=== PATIENT | male | born 1945 | race Caucasian/White ===

== ENCOUNTER 2018-04-25 19:05 | Emergency (ER) | payer OTHER ==
--- NOTE | 2018-04-25 19:21 | EDPHY ---
H & P Stated Complaint: "Feeling shaky more than usual", diff. breathing, hx depression Time Seen by Provider: 04/25/18 19:21 HPI/ROS: CHIEF COMPLAINT: Feeling more shaky HISTORY OF PRESENT ILLNESS: The patient has a history of chronic depression and a chronic resting tremor. He has been under the care of a psychiatrist for years in on a number of medications which have not resulted in improvement of his chronic tremor and feeling of restlessness. He presents to the ED tonight with his ex- feeling that his symptoms are worsening. The patient denies any fever, vomiting, diarrhea, chest pain or difficulty breathing. He denies any recent changes to his medications. He is followed [facility]. The patient denies any dysuria. He does have a history of BPH which is typically well managed with Flomax. The patient denies any suicidal or homicidal ideation REVIEW OF SYSTEMS: A comprehensive 10 point review of systems is otherwise negative aside from elements mentioned in the history of present illness. Source: Patient - Personal History Current Tetanus Diphtheria and Acellular Pertussis (TDAP): Unsure - Medical/Surgical History Hx Asthma: No Hx Chronic Respiratory Disease: No Hx Diabetes: No Hx Cardiac Disease: No Hx Renal Disease: No Hx Cirrhosis: No Hx Alcoholism: No Hx HIV/AIDS: No Hx Splenectomy or Spleen Trauma: No Other PMH: depression HTN, BPH - Social History Smoking Status: Never smoked - Physical Exam Exam: General Appearance: Alert, no acute distress Eyes: Pupils equal and round no pallor or injection ENT, Mouth: Mucous membranes moist Respiratory: There are no retractions, lungs are clear to auscultation Cardiovascular: Regular rate and rhythm Gastrointestinal: Abdomen is soft and nontender, no masses, bowel sounds normal Neurological: A&O, normal motor function, normal sensory exam, normal cranial nerves, fine resting tremor Skin: Warm and dry, no rashes Musculoskeletal: Neck is supple nontender Extremities: symmetrical, full range of motion Psychiatric: Patient is oriented X 3, there is no agitation Constitutional: Initial Vital Signs Temperature (C) 36.9 C 04/25/18 19:13 Heart Rate 101 H 04/25/18 19:13 Respiratory Rate 18 04/25/18 19:13 Blood Pressure 135/92 H 04/25/18 19:13 O2 Sat (%) 95 04/25/18 19:13 O2 Delivery Mode Room Air Allergies/Adverse Reactions: No Known Allergies Allergy (Unverified 04/25/18 19:16) Home Medications: Medication Instructions Recorded Propranolol HCl [Inderal 20mg (*)] 40 mg PO BID 07/17/09 Venlafaxine Xr [Effexor Xr] 150 mg PO HS 11/14/09 Sertraline HCl [Zoloft 50mg (*)] 100 mg PO HS 11/18/15 Venlafaxine Xr [Effexor Xr] 300 mg PO DAILY 11/18/15 Lisinopril [Zestril 40 mg (*)] 40 mg PO DAILY #0 tab 12/10/15 Propranolol HCl [Inderal 20mg (*)] 40 mg PO BID #0 tab 12/10/15 Sertraline HCl [Zoloft 50mg (*)] 100 mg PO HS #0 tab 12/10/15 Venlafaxine Xr [Effexor Xr] 150 mg PO HS #0 cap 12/10/15 Venlafaxine Xr [Effexor Xr] 300 mg PO DAILY #0 cap 12/10/15 Bisacodyl 04/25/18 Lisinopril 04/25/18 MIRTAZAPINE 04/25/18 Quetiapine Fumarate 04/25/18 Tamsulosin HCl 04/25/18 Medical Decision Making ED Course/Re-evaluation: The patient presents to the ED with a slight subjective complaint of worsening chronic tremor. The patient has no acute medical complaints. The patient denies any suicidal or homicidal ideation. The patient's neurologic examination was otherwise nonfocal. The patient's urinalysis demonstrates no evidence of an infection. The patient' s metabolic panel is within normal limits. At this point time I have reassured the patient I see no evidence of a emergency medical condition. I do feel that he can continue to work with his primary care provider in psychiatrist for management of his symptoms. Differential Diagnosis: Differential diagnosis considered includes UTI, dehydration, metabolic abnormality - Data Points Laboratory Results: 04/25/18 19:43 POC Hgb 15.6 gm/dL gm/dL (13.7-17.5) POC Hct 46 % % (40-51) POC Sodium 140 mEq/L mEq/L (135-145) POC Potassium 4.0 mEq/L mEq/L (3.3-5.0) POC Chloride 101 mEq/L mEq/L (97-110) POC BUN 13 mg/dL mg/dL (7-23) POC Creatinine 0.9 mg/dL mg/dL (0.7-1.3) POC Glucose 83 mg/dL mg/dL (70-100) Point of Care Test Results: Chemistry 04/25/18 19:43 POC Sodium 140 mEq/L mEq/L (135-145) POC Potassium 4.0 mEq/L mEq/L (3.3-5.0) POC Chloride 101 mEq/L mEq/L (97-110) POC BUN 13 mg/dL mg/dL (7-23) POC Creatinine 0.9 mg/dL mg/dL (0.7-1.3) POC Glucose 83 mg/dL mg/dL (70-100) ISTAT H&H 04/25/18 19:43 POC Hgb 15.6 gm/dL gm/dL (13.7-17.5) POC Hct 46 % % (40-51) Urine Dip Collection Date 04/25/18 Collection Time 19:59 Specific Archer (1.002-1.030) 1.010 PH (5.0-7.5) 6.5 Leukocytes (Negative) Trace Nitrites (Negative) Negative Protein (Negative) Negative Glucose (Negative) Negative Ketones (Negative) Negative Urobilnogen (0.2-1.0 EU) 0.2 Bilirubin (Negative) Negative Blood (Negative) Trace Departure - Departure Disposition: Home, Routine, Self-Care Clinical Impression: Tremor Condition: Good Instructions: Tremors (ED) Additional Instructions: Please follow-up with your regular physician as scheduled. I see no evidence of a emergency medical condition tonight. Referrals: ARPITA URIBE [Primary Care Provider] - As per Instructions
[2018-04-25 20:07] VITALS: BP 115/81
[2018-04-25] MEDS ORDERED: LORAZEPAM 1 MG PREPACK#4 BTL TAKEHOME ONE (20:19)
== END 2018-04-25 20:35 | disposition home or self-care (01) ==
DX: R25.1 Tremor, unspecified (principal); F32.9 Major depressive disorder, single episode, unspecified; I10 Essential (primary) hypertension; N40.0 Benign prostatic hyperplasia without lower urinary tract symptoms
CPT/HCPCS: 82435-PO; 82565-PO; 82947-PO; 84132-PO; 84295-PO; 84520-PO; 85014-PO